=== PATIENT | female | born 1990 | race Caucasian/White ===

== ENCOUNTER 2017-02-04 13:49 | Inpatient (IN) | payer OTHER ==
[~2017-02-04 13:49] MED LIST: BACTROBAN22 GM TOP; HYDROCHLOROTH12.5 M1 PO; NORVASC 5 MG TAB5 MG PO; ZYVOX 600 MG T600 MG PO
[2017-02-04 15:03] LABS: HEMOGLOBIN 10.5 gm/dl (12.3-15.3); RED BLOOD COUNT 3.79 M/UL (4.00-5.10); WHITE BLOOD COUNT 10.3 K/UL (4.5-11.0)
[2017-02-04 15:09] LABS: BUN/CREATININE RATIO 7 (0-10)
== END 2017-02-05 09:24 | disposition home or self-care (01) | DRG 781 ==
LOC: GENOP 13:49 → OB 14:09
PROVIDERS: Obstetrics & Gynecology; ADMIT Obstetrics & Gynecology
DX: O11.3 Pre-existing hypertension with pre-eclampsia, third trimester (principal); O23.43 Unspecified infection of urinary tract in pregnancy, third trimester; Z3A.34 34 weeks gestation of pregnancy; Z88.5 Allergy status to narcotic agent
CPT/HCPCS: 36415; 80053; 81001; 83615; 84550; 85025; J0696; J0702; J7030; Q0163

== ENCOUNTER → 2017-02-05 | Outpatient (CLI) | payer OTHER ==
[2017-02-05 17:09] LABS: URINE TOTAL PROTEIN 28 mg/dl
== END ==
LOC: LBRF 16:01
PROVIDERS: Obstetrics & Gynecology
DX: R80.9 Proteinuria, unspecified (principal)
CPT/HCPCS: 84156; 96366; 96372

== ENCOUNTER → 2020-07-31 | Outpatient (CLI) | payer OTHER ==
[~2020-07-31] MED LIST changes: +ALDACTONE100 MG PO; +CHLORTHALIDONE25 MG PO; +HYDROCODON-ACE1 EAC2 PO; +IBUPROFEN200 M1 PO; +IBUPROFEN600 MG PO; +LORTAB 7.5-3251 EACH PO; +NAPROSYN500 MG PO; +NORVASC10 MG PO; +ZOFRAN PO
[2020-07-31 10:23] LABS: HEMOGLOBIN 14.4 gm/dl (12.3-15.3); RED BLOOD COUNT 4.81 M/UL (4.00-5.10); WHITE BLOOD COUNT 7.1 K/UL (4.5-11.0)
[2020-07-31 10:43] LABS: BUN/CREATININE RATIO 17 (0-10)
== END ==
LOC: OPSV2 09:00
PROVIDERS: Anesthesiology; Obstetrics & Gynecology
DX: Z01.812 Encounter for preprocedural laboratory examination (principal); N90.60 Unspecified hypertrophy of vulva
CPT/HCPCS: 36415; 80048; 81001; 85025

== ENCOUNTER → 2020-08-02 | Day surgery (SDC) | payer OTHER | END | disposition home or self-care (01) | LOC: OR 07:51 | PROVIDERS: Obstetrics & Gynecology | PROC: 0UBMXZZ Excision of Vulva, External Approach (ICD-10-PCS; principal; 2020-08-02 09:30) | DX: N90.60 Unspecified hypertrophy of vulva (principal); I10 Essential (primary) hypertension; F41.9 Anxiety disorder, unspecified; J30.2 Other seasonal allergic rhinitis; M19.90 Unspecified osteoarthritis, unspecified site; D50.9 Iron deficiency anemia, unspecified; K21.9 Gastro-esophageal reflux disease without esophagitis; L68.0 Hirsutism; E55.9 Vitamin D deficiency, unspecified; R00.2 Palpitations; Z79.899 Other long term (current) drug therapy; Z88.0 Allergy status to penicillin; Z88.5 Allergy status to narcotic agent; Z20.822 Contact with and (suspected) exposure to COVID-19 | CPT/HCPCS: 84703; J1100; J1580; J1885; J2001; J2250; J2405; J2704; J3010; J7120 ==

== ENCOUNTER 2021-01-08 20:36 | Emergency (ER) | payer OTHER ==
[2021-01-08] MEDS ORDERED: NORFLEX 100 MG100 MG PO (22:32)
[2021-01-08] MEDS ORDERED: Voltaren Gel 1 % TOP (22:32)
== END 2021-01-08 22:45 | disposition home or self-care (01) ==
LOC: ER1 20:36
DX: S20.212A Contusion of left front wall of thorax, initial encounter (principal); I10 Essential (primary) hypertension; Z88.5 Allergy status to narcotic agent; W22.8XXA Striking against or struck by other objects, initial encounter
CPT/HCPCS: 71111; 99284